=== PATIENT | male | born 1955 | race Caucasian/White ===

== ENCOUNTER → 2019-10-09 16:38 | Outpatient (CLI) | payer BC, SELFPAY ==
[2019-10-09 17:04] LABS: Basophils # 0.1 K/mm3 (0-0.2); Basophils % 0.7 % (0.1-2.0); Eosinophils # 0.1 K/mm3 (0.0-0.4); Eosinophils % 1.2 % (0.1-12.0); Hematocrit 42.9 % (37.0-47.0); Hemoglobin 14.9 g/dL (12.2-16.2); Lymphocytes # 2.2 K/mm3 (0.7-4.5); Lymphocytes % 34.1 % (10-50); Mean Corpuscular HGB Conc 34.8 g/dL (31.8-35.4); Mean Corpuscular Hemoglobin 31.7 pg (27.0-31.2); Mean Platelet Volume 8.4 fl (7.4-10.4); Monocytes # 0.4 K/mm3 (0.1-1.0); Monocytes % 6.8 % (1.7-9.3); Neutrophils # 3.7 K/mm3 (1.8-7.8); Neutrophils % 57.2 % (37.0-80.0); Platelet Count 259 K/mm3 (142-424); Red Blood Count 4.72 M/mm3 (4.20-5.40); Red Cell Distribution Width 12.9 % (11.5-17.5); White Blood Count 6.4 K/mm3 (4.8-10.8)
[2019-10-09 17:34] LABS: Alanine Aminotransferase 25 U/L (12-78); Albumin Level 4.7 g/dl (3.5-5.0); Albumin/Globulin Ratio 1.7 (1.1-1.8); Alkaline Phosphatase 73 U/L (38-126); Anion Gap 11.4 mEq/L (5-15); Aspartate Amino Transferase 38 U/L (14-36); Bilirubin,Total 0.5 mg/dl (0.2-1.3); Blood Urea Nitrogen 13 mg/dl (7-17); Calcium 9.4 mg/dl (8.4-10.2); Carbon Dioxide 29 mmol/L (22.0-30.0); Chloride 101 mmol/L (98-107); Chol/HDL Ratio 2.6 (1-3.5); Cholesterol 108 mg/dl (140-200); Estimated Glomerular Filt Rate 38 ml/min (>60); GFR (African American) 46 ML/MIN (>60); Globulin 2.8 g/dL (1.3-3.2); Glucose 96 mg/dl (74-100); HDL Cholesterol 41 mg/dl (40-60); Potassium 4.4 mmoL/L (3.5-5.1); Sodium 137 mmol/L (136-145); Total Protein,Serum 7.5 g/dl (6.3-8.2); Triglycerides 276 mg/dl (30-150); VLDL Cholesterol 55 mg/dL (0-40)
[2019-10-11 11:12] LABS: PSA, Free 0.59 ng/mL; Prostate Specific Ag 1.9 ng/mL (Not Estab.)
== END ==
PROVIDERS: Visit Provider Family Medicine
DX: I10 Essential (primary) hypertension (principal); Z00.00 Encounter for general adult medical examination without abnormal findings; E78.5 Hyperlipidemia, unspecified
CPT/HCPCS: 80053; 80061; 84153; 84154; 85025

== ENCOUNTER → 2020-02-29 16:56 | Outpatient (CLI) | payer BC, SELFPAY ==
[2020-02-29 18:56] LABS: Chloride 100 mmol/L (98-107); Potassium 4.5 mmoL/L (3.5-5.1); Sodium 141 mmol/L (136-145)
[2020-02-29 18:59] LABS: Anion Gap 17.5 mEq/L (5-15); Blood Urea Nitrogen 15 mg/dl (9-20); Carbon Dioxide 28 mmol/L (22.0-30.0); Estimated Glomerular Filt Rate 51 ml/min (>60); GFR (African American) 62 ML/MIN (>60)
[2020-02-29 19:00] LABS: Calcium 9.5 mg/dl (8.4-10.2); Glucose 91 mg/dl (74-100)
== END ==
PROVIDERS: Visit Provider Family Medicine
DX: M25.461 Effusion, right knee (principal)
CPT/HCPCS: 80048

== ENCOUNTER → 2020-05-02 11:49 | Outpatient (CLI) | payer BC, SELFPAY ==
--- NOTE | 2020-05-02 11:54 | XR_ITS ---
PROCEDURE: XR LUMBAR SPINE 2-3V CLINICAL INDICATION: back pain Low back pain COMPARISON: No exams were available for comparison FINDINGS: There is normal alignment. No acute fracture or dislocation. Anterior osteophytes are present at L2-L3 L4 and L5. Facet arthritic changes are present at L5-S1. Degenerative disc disease L5-S1. IMPRESSION: Degenerative changes Dictated by: Bradford Anderson MD 05/02/2020 15:11 Bradford Anderson MD in [place] 05/02/2020 15:11
--- NOTE | 2020-05-02 11:54 | XR_ITS ---
PROCEDURE: XR KNEE RT 2V CLINICAL INDICATION: erosive oa Pain COMPARISON: No exams were available for comparison FINDINGS: No fracture or dislocation. No lytic or blastic change. There is normal mineralization. There are mild osteoarthritic changes involving all 3 compartments. A lucency is noted at the base the lateral tibial spine and could be due to an avulsion injury or ununited ossification center versus bony spur. Other findings:None. IMPRESSION: Mild osteoarthritic changes with lucency at the base of the lateral tibial spine which could be due to avulsion injury or ununited ossification center versus bony spur. Dictated by: Bradford Anderson MD 05/02/2020 15:06 Bradford Anderson MD in [place] 05/02/2020 15:06
--- NOTE | 2020-05-02 11:54 | XR_ITS ---
PROCEDURE: XR CHEST 2V CLINICAL HISTORY: right lung pain COMPARISON: No exams were available for comparison FINDINGS: The cardiomediastinal silhouette and pulmonary vascularity are within normal limits. The lungs are clear without infiltrates, suspicious nodules, or pleural effusions. No acute bony abnormalities. IMPRESSION: No acute findings. Dictated by: Bradford Anderson MD 05/02/2020 15:10 Bradford Anderson MD in [place] 05/02/2020 15:10
--- NOTE | 2020-05-02 11:54 | XR_ITS ---
PROCEDURE: XR THORACIC SPINE 2V CLINICAL INDICATION: back pain COMPARISON: No exams were available for comparison FINDINGS: Normal alignment. Multilevel endplate osteophytes with mild multilevel degenerative disc disease. The. No fracture or dislocation. No lytic or blastic change. IMPRESSION: Thoracic spondylosis, no acute finding Dictated by: Bradford Anderson MD 05/02/2020 15:09 Bradford Anderson MD in [place] 05/02/2020 15:09
== END ==
PROVIDERS: PCP Family Medicine; Visit Provider Family Medicine
DX: M54.5 Low back pain (principal); R05 Cough; M54.6 Pain in thoracic spine; M25.561 Pain in right knee
CPT/HCPCS: 71046; 72070; 72100; 73560

== ENCOUNTER → 2020-06-03 13:37 | Outpatient (CLI) | payer BC, SELFPAY ==
--- NOTE | 2020-06-03 13:45 | XR_ITS ---
PROCEDURE: XR KNEE RT 4V CLINICAL INDICATION: right knee pain; weightbearing COMPARISON: CR XR KNEE RT 2V from 05/02/2020 FINDINGS: There is [id number] narrowing of the medial compartment of the right knee on the current images. There is widening of the lateral compartment of the right knee on current images causing varus deformity. There are marginal patellar osteophytes. There is a moderate joint space effusion. The there is narrowing of the lateral aspect of the patellofemoral compartment. The IMPRESSION: Abnormal narrowing, and widening and other degenerative findings as above. Dictated by: Zuleyka Camarillo MD 06/03/2020 18:37 Zuleyka Camarillo MD in [place] 06/03/2020 18:37
--- NOTE | 2020-06-03 13:45 | XR_ITS ---
PROCEDURE: XR HIP RT 2-3V W/PELVIS CLINICAL INDICATION: right hip pain COMPARISON: No exams were available for comparison FINDINGS: No fracture or dislocation is evident. No significant degenerative change. No lytic or blastic change. Unremarkable soft tissues. IMPRESSION: No acute findings. Dictated by: Dr. Leonel Grant MD 06/03/2020 17:32 Dr. Leonel Grant MD in [place] 06/03/2020 17:32
== END ==
PROVIDERS: PCP Family Medicine; Visit Provider Orthopaedic Surgery
DX: M25.561 Pain in right knee (principal); M25.551 Pain in right hip
CPT/HCPCS: 73502; 73564

== ENCOUNTER → 2020-07-11 09:59 | Outpatient (POV) | payer BC, SELFPAY ==
[2020-07-11 10:25] VITALS: BP 129/84; PULSE 63; RESP 18; O2SAT 98; BMI 29.0
--- NOTE | 2020-07-11 10:47 | HMH.PMCON ---
Assessment and Plan (1) Myofascial pain syndrome of thoracic spine Status: Chronic Category: Medical Code(s): M79.18 - Myalgia, other site - Assessment and plan all Dx Assessment and Plan for all problems:: We will schedule the patient for right thoracic paraspinous trigger point injections. I will follow-up with him afterwards reassess his symptoms at that time he has been instructed to call the office if he has any issues prior to his next appointment. Dr. Beauchamp has reviewed this note and agrees with this plan of care. This note was dictated using voice recognition software and may contain errors or omissions HPI - Data of Consult Consult date: 07/11/20 Requesting Physician: Jaki Tenorio APRN Primary Care Provider: Jesse Jin MD - Consult Narrative Reason for consult: Back pain History of present illness: Mr. Ramirez is a 65 year old male who presents today for consultation in regards to his thoracic back pain. Patient states he has had this pain for about 3 months. He has no recollection of any trauma or initiating factor. Patient rates his pain a 5 out of 10. Mostly in the mid right back. Patient states that leaning forward and typing at his computer increases pain while rest, reclining and Motrin decreases pain. Patient denies any numbness and tingling. Patient states that when he moves a certain way the pain does seem to increase. On examination patient does have palpable trigger points in the right thoracic paraspinous area. CC: Jaki Tenorio APRN [facility] History I have reviewed the patient's past medical history: Yes Medical History: Reports:: Gastroesophageal Reflux Disease(GERD), Hyperlipidemia, Hypertension Denies:: Cancer, Diabetes Mellitus Type 1, Diabetes Mellitus Type 2, MRSA *Have you ever received a pneumonia vaccine?: No *Have you received a flu vaccine this season?: No Laterality Cases: Right: Carpal Tunnel Release Other Surgeries: Yes: Colonoscopy Amputation: No Fractures: No - *Social History Smoking Status: Never smoker Alcohol Intake: never Substance Use Type: denies use *Occupational Status:: retired Housing: house Household Members: other *Travel in the last 8 weeks: None Family Hx:: Unable to obtain Review of Systems - Review of Systems ROS General: no recent weight change, no fever, no sleep disturbances Respiratory: no cough, no shortness of air, no recurring pulmonary infections Cardiovascular/Peripheral Vascular: No chest pain, No palpitations, no edema, no shortness of breath. Gastrointestinal: no new onset incontinence, normal bowel movements reported Genitourinary: no new onset incontinence Musculoskeletal: Muscle pain Psychiatric: normal mood/ affect Neurological: [denies new onset weakness in extremities], [denies new onset balance issues] Meds Home Medications Medication Instructions Recorded Confirmed Type amlodipine 10 mg-benazepril 20 mg 1 cap PO ONCE #30 cap 10/09/19 06/03/20 Rx capsule ezetimibe 10 mg tablet 10 mg PO DAILY #30 tab 10/09/19 06/03/20 Rx fluoxetine 20 mg capsule 20 mg PO DAILY #30 cap 10/09/19 06/03/20 Rx omeprazole 40 mg capsule,delayed 40 mg PO DAILY #30 cap 10/09/19 06/03/20 Rx release sildenafil 100 mg tablet 100 mg PO ONCE PRN #10 tab 10/09/19 06/03/20 Rx simvastatin 20 mg tablet 20 mg PO DAILY #30 tab 10/09/19 06/03/20 Rx Allergies Allergy/AdvReac Type Severity Reaction Status Date / Time No Known Allergies Allergy Verified 06/03/20 14:47 Objective Vital signs: Pulse Resp BP Pulse Ox 63 18 129/84 98 07/11/20 10:25 07/11/20 10:25 07/11/20 10:25 07/11/20 10:25 Narrative: Skull exam physical Exam General: Alert and oriented x3, no acute distress, pleasant and cooperative, [on room air] Lungs: Resps E/U, Symmetrical chest expansion, Eyes: PERRL Musculoskeletal: Flexion and extension of thoracic spine somewhat guarded secondary to pain, deep tendon reflexe
== END ==
PROVIDERS: PCP Family Medicine; Visit Provider Clinical Nurse Specialist Family Health
DX: M79.18 Myalgia, other site (principal)
CPT/HCPCS: 99202; G0463

== ENCOUNTER 2020-07-15 13:10 | Day surgery (SDC) | payer BC, SELFPAY ==
[2020-07-15 13:14] VITALS: BP 162/86; PULSE 69; RESP 18; TEMP 36.6; O2SAT 98; BMI 29.0
[2020-07-15 13:39] VITALS: BP 132/79; PULSE 79; RESP 18
[2020-07-15 13:40] VITALS: BP 140/79; PULSE 89; RESP 18; O2SAT 98
[2020-07-15 13:46] VITALS: BP 163/88; PULSE 66; RESP 18; O2SAT 98
--- NOTE | 2020-07-15 14:03 | HMH.PMPROC ---
- Procedure Date: 07/15/20 Time: 14:03 Anesthesiologist:: Rodney Beauchamp MD Complications:: None Pre-procedure Diagnosis:: Mid back pain with thoracic paraspinous myofascial pain Post-procedure Diagnosis:: Same Indications for Procedure:: This patient is a pleasant 65-year-old white male who has increasing mid back pain worse when he is leaning forward and typing at his computer. He has trigger points identified on the right thoracic paraspinous area. We will do trigger point injections to the right thoracic paraspinous muscles today for his myofascial pain. Procedure Details:: Trigger point injections x4 to the right thoracic paraspinous muscles Informed consent was obtained risk and benefits of the procedure were explained to the patient. Patient was taken the procedure room. The right mid back was prepped using ChloraPrep. Trigger points were palpated marked. Each of these trigger points were injected with bupivacaine 0.25% 3 mL and Depo-Medrol 10 mg. We used a total of 40 mg Depo-Medrol for 4 trigger points on the right thoracic paraspinous muscles. Plan and Disposition:: We will follow-up with him in 2 weeks. Will reevaluate symptoms at that time.
== END 2020-07-15 13:46 | disposition home or self-care (01) ==
PROVIDERS: PCP Family Medicine; Visit Provider Anesthesiology
DX: M54.6 Pain in thoracic spine (principal); M79.18 Myalgia, other site; E78.5 Hyperlipidemia, unspecified; I10 Essential (primary) hypertension; K21.9 Gastro-esophageal reflux disease without esophagitis; Z87.39 Personal history of other diseases of the musculoskeletal system and connective tissue
CPT/HCPCS: 20552; J1040

== ENCOUNTER → 2020-08-11 11:04 | Outpatient (POV) | payer BC, SELFPAY ==
[2020-08-11 11:51] VITALS: BP 136/74; PULSE 74; RESP 18; O2SAT 98; BMI 28.6
--- NOTE | 2020-08-11 12:46 | HMH.PAINSOAP ---
[facility] Pain Management SOAP Note Subjective:: Patient is a pleasant 65-year-old white male who presents today for follow-up after trigger point injections. Patient did not get much relief with this. However he rates his pain a 0 out of 10 today. Patient will pain in her his right thoracic paraspinous worsening with activity including mowing the lawn and computer work. Patient has relief when pressure is held in this area however it returns when pressure is released. We discussed low-dose muscle relaxers. ROS General: no recent weight change, no fever, no sleep disturbances Respiratory: no cough, no shortness of air, no recurring pulmonary infections Cardiovascular/Peripheral Vascular: No chest pain, No palpitations, no edema, no shortness of breath. Gastrointestinal: no new onset incontinence, normal bowel movements reported Genitourinary: no new onset incontinence Musculoskeletal: Myofascial pain Psychiatric: normal mood/ affect Neurological: [denies new onset weakness in extremities], [denies new onset balance issues] Objective:: Physical Exam General: Alert and oriented x3, no acute distress, pleasant and cooperative, [on room air] Lungs: Resps E/U, Symmetrical chest expansion, Eyes: PERRL Musculoskeletal: Flexion and extension of thoracic spine somewhat guarded secondary to pain, deep tendon reflexes normal, strength in upper and lower extremities [5/5], normal gait noted here Neurological: speech clear, licensed physical therapy assistant equal, no gross sensory deficits Assessment:: Myofascial pain syndrome Plan:: We will give the patient Zanaflex 2 mg up to 3 times daily. We will see him back in 3 weeks reassess his symptoms at that time he has been instructed to call the office if he has any issues prior to his next appointment. Dr. Beauchamp has reviewed this note and agrees with this plan of care. This note was dictated using voice recognition software and may contain errors or omissions [facility] History I have reviewed the patient's past medical history: Yes Medical History: Reports:: Gastroesophageal Reflux Disease(GERD), Hyperlipidemia, Hypertension Denies:: Cancer, Diabetes Mellitus Type 1, Diabetes Mellitus Type 2, MRSA, Seizures *Have you ever received a pneumonia vaccine?: Yes *Have you received a flu vaccine this season?: Yes Other Medical History: Denies: Blood Transfusion Reaction Laterality Cases: Right: Carpal Tunnel Release Other Surgeries: Yes: Colonoscopy Amputation: No Fractures: No - *Social History Smoking Status: Never smoker Alcohol Intake: never Substance Use Type: denies use *Occupational Status:: other Housing: house Household Members: other *Travel in the last 8 weeks: None Family Hx:: Unable to obtain
== END ==
PROVIDERS: PCP Family Medicine; Visit Provider Clinical Nurse Specialist Family Health
DX: M79.18 Myalgia, other site (principal)
CPT/HCPCS: 99212; G0463

== ENCOUNTER → 2020-09-05 10:33 | Outpatient (POV) | payer BC, SELFPAY ==
[2020-09-05 11:00] VITALS: BP 142/81; PULSE 53; RESP 18; O2SAT 96; BMI 28.1
--- NOTE | 2020-09-05 12:30 | HMH.PAINSOAP ---
[facility] Pain Management SOAP Note Subjective:: Patient is a pleasant 65-year-old white male who presents today for follow-up. Patient is still having thoracic back pain radiated 6 out of 10. He has no had been over 6 months. Patient has not gotten relief from medications, therapy, stretching programs. We discussed getting some diagnostic imaging of his thoracic spine he is agreeable. We will move forward with this. ROS General: no recent weight change, no fever, no sleep disturbances Respiratory: no cough, no shortness of air, no recurring pulmonary infections Cardiovascular/Peripheral Vascular: No chest pain, No palpitations, no edema, no shortness of breath. Gastrointestinal: no new onset incontinence, normal bowel movements reported Genitourinary: no new onset incontinence Musculoskeletal: [Thoracic back pain Psychiatric: normal mood/ affect Neurological: [denies new onset weakness in extremities], [denies new onset balance issues] Objective:: Physical Exam General: Alert and oriented x3, no acute distress, pleasant and cooperative, [on room air] Lungs: Resps E/U, Symmetrical chest expansion, Eyes: PERRL Musculoskeletal: Flexion and extension of thoracic spine somewhat guarded secondary to pain, deep tendon reflexes normal, strength in upper and lower extremities [5/5], normal gait noted Neurological: speech clear, wood experimental mechanic equal, no gross sensory deficits Assessment:: Thoracic back pain Plan:: We will schedule a thoracic MRI to help determine pathology. He has been instructed to call the office if he has any issues prior to his next appointment. Dr. Beauchamp has reviewed this note and agrees with this plan of care. This note was dictated using voice recognition software and may contain errors or omissions [facility] History I have reviewed the patient's past medical history: Yes Medical History: Reports:: Gastroesophageal Reflux Disease(GERD), Hyperlipidemia, Hypertension Denies:: Cancer, Diabetes Mellitus Type 1, Diabetes Mellitus Type 2, MRSA, Seizures *Have you ever received a pneumonia vaccine?: No *Have you received a flu vaccine this season?: No Other Medical History: Denies: Blood Transfusion Reaction Laterality Cases: Right: Carpal Tunnel Release Other Surgeries: Yes: Colonoscopy Amputation: No Fractures: No - *Social History Smoking Status: Never smoker Alcohol Intake: never Substance Use Type: denies use *Occupational Status:: employed Housing: house Household Members: other *Travel in the last 8 weeks: None Family Hx:: Unable to obtain
== END ==
PROVIDERS: Visit Provider Clinical Nurse Specialist Family Health
DX: M54.6 Pain in thoracic spine (principal)
CPT/HCPCS: 99212; G0463

== ENCOUNTER → 2020-09-08 16:47 | Outpatient (CLI) | payer BC, SELFPAY ==
--- NOTE | 2020-09-08 16:49 | MR_ITS ---
PROCEDURE: MR THORACIC SPINE WO CON CLINICAL INDICATION: MID BACK PAIN Mid back pain that goes to the rt. Symptoms [id number]. COMPARISON: No exams were available for comparison TECHNIQUE: Routine multiplanar multi echo sequences are performed without gadolinium enhancement. FINDINGS: There is normal alignment. No fracture or dislocation is evident. No bony destructive process. No disc herniation or epidural mass apparent. No significant degenerative changes are evident. IMPRESSION: Negative MRI the thoracic spine Dictated by: Bradford Anderson MD 09/09/2020 10:50 Bradford Anderson MD in [place] 09/09/2020 10:50
== END ==
PROVIDERS: PCP Family Medicine; Visit Provider Clinical Nurse Specialist Family Health
DX: M54.6 Pain in thoracic spine (principal)
CPT/HCPCS: 72146

== ENCOUNTER → 2020-09-15 10:05 | Outpatient (POV) | payer BC, SELFPAY ==
[2020-09-15 10:11] VITALS: BP 139/69; PULSE 69; RESP 18; O2SAT 97; BMI 28.1
--- NOTE | 2020-09-15 10:51 | HMH.PAINSOAP ---
[facility] Pain Management SOAP Note Subjective:: Patient is a 65-year-old white male who presents today for follow-up. The patient is being treated for mid back pain. He rates his pain a 2 out of 10 today, however, the patient is having significant pain in multiple areas today. He reports he has tried trigger point injections to his mid back area where he continues to have pain. He reports the pain to start in the right mid back area around the T3-T4 area. He says the pain presents first thing in the morning as he awakens, and radiates throughout the day to upper and lower back area as well as to the left side. He has tried muscle relaxers as well as anti-inflammatories and injections with no relief. He is also complaining of pain to his right knee. Patient has seen Dr. Krishna in the past for which he says that he was told it is due to her cartilage issue. Patient says that he is now having the same type of pain to his left knee. He has noticed some edema to his right knee on occasion. He does take muscle relaxers which did give him relief short-term, however, his pain is back. He is inquiring about massage therapy as well as chiropractic therapy. Review of Systems General: No recent weight changes, no fever, no sleep disturbances Respiratory: No cough, no shortness of air, no recurring pulmonary infections Cardiovascular/peripheral vascular: No chest pain, no palpitations, no edema, no shortness of breath Gastrointestinal: No new onset incontinence, normal bowel movements reported Genitourinary: No new onset incontinence Musculoskeletal: Mid back pain, bilateral knee pain Psychiatric: Normal mood/affect Neurological: [Denies weakness in extremities], [denies balance issues] Objective:: Physical exam General: Alert and oriented x3, no acute distress, pleasant and cooperative, [on room air] Lungs: Respirations even and unlabored, symmetrical chest expansion Eyes: PERRL Musculoskeletal: Flexion and extension of thoracic spine bilateral lower extremities somewhat guarded secondary to pain, deep tendon reflexes normal, strength in upper and lower extremities [4/5], [abnormal gait noted] Neurological: Speech clear, data collection specialist equal, no gross sensory deficit Assessment:: Mid back pain, myofascial pain mid back, bilateral knee pain Plan:: Patient I discussed trying Skelaxin. His muscle relaxer he is currently taking is not working for his pain. We also discussed a compounding cream, however, he is not interested at this time. We will order him Skelaxin and plan to see him back in a month to reevaluate his symptoms. He will inquire with the massage therapist and with a chiropractor to see if this helps with his myofascial pain to his mid back. The injections did not work for him. Risks and benefits of the medication have been explained in detail to the patient. The patient has been advised to consult with his/her primary care provider and pharmacist regarding drug-drug interaction of medications currently prescribed. Patient has been instructed to contact the clinic with any concerns before the next appointment. Dr. Beauchamp has reviewed this note and agrees with this plan of care. This note was dictated using voice recognition software and make contain errors or omissions. [facility] History I have reviewed the patient's past medical history: Yes Medical History: Reports:: Gastroesophageal Reflux Disease(GERD), Hyperlipidemia, Hypertension Denies:: Cancer, Diabetes Mellitus Type 1, Diabetes Mellitus Type 2, MRSA, Seizures *Have you ever received a pneumonia vaccine?: No *Have you received a flu vaccine this season?: No Other Medical History: Denies: Blood Transfusion Reaction Laterality Cases: Right: Carpal Tunnel Release Other Surgeries: Yes: Colonoscopy Amputation: No Fractures: No - *Social History Smoking Status: Never smoker Alcohol Intake: never Substance Use Type: denies use *Occupational Status:: employed Housing: house House
== END ==
PROVIDERS: PCP Family Medicine; Visit Provider Clinical Nurse Specialist Family Health
DX: M54.6 Pain in thoracic spine (principal); M25.561 Pain in right knee; M25.562 Pain in left knee; M79.18 Myalgia, other site
CPT/HCPCS: 99212; G0463

== ENCOUNTER → 2020-10-17 10:06 | Outpatient (POV) | payer BC, SELFPAY ==
[2020-10-17 10:17] VITALS: BP 133/75; PULSE 66; RESP 18; O2SAT 95; BMI 28.1
--- NOTE | 2020-10-17 10:28 | HMH.PAINSOAP ---
[facility] Pain Management SOAP Note Subjective:: Patient is a 65-year-old white male who presents today for follow-up. He has been treated in the clinic for myofascial pain and bilateral knee pain. Patient was previously started on Skelaxin for his myofascial pain. He has tried trigger point injections which she did not get much relief. He is seeing Dr. Krishna for his bilateral knee pain. He says that he had hoped to get synthetic injections in bilateral knees, but was denied by his insurance. He is planning to see Dr. Krishna today for discussion of further plan of care for his knees. He does say he plans to see a chiropractor in the following week for his mid and low back pain. Skelaxin has caused him to be very drowsy. He is not taking any anti-inflammatory. He did take ibuprofen for a short time. We did discuss trying diclofenac. He would like to try diclofenac to see if this helps with his knee pain and mid and low back pain. His pain is a 1 out of 10 today. Review of Systems General: No recent weight changes, no fever, no sleep disturbances Respiratory: No cough, no shortness of air, no recurring pulmonary infections Cardiovascular/peripheral vascular: No chest pain, no palpitations, no edema, no shortness of breath Gastrointestinal: No new onset incontinence, normal bowel movements reported Genitourinary: No new onset incontinence Musculoskeletal: Mid and low back pain, bilateral knee pain Psychiatric: Normal mood/affect Neurological: [Denies weakness in extremities], [denies balance issues] Objective:: Physical exam General: Alert and oriented x3, no acute distress, pleasant and cooperative, [on room air] Lungs: Respirations even and unlabored, symmetrical chest expansion Eyes: PERRL Musculoskeletal: Flexion and extension of thoracic and lumbar spine somewhat guarded secondary to pain, deep tendon reflexes normal, strength in upper and lower extremities [5/5], [normal gait noted Neurological: Speech clear, store protection specialist equal, no gross sensory deficit Assessment:: Myofascial pain mid back, low back, bilateral knee pain Plan:: Patient plans to seek chiropractic therapy in 1 week. We will plan to follow-up with him after that visit to discuss a further plan of care. He may do physical therapy if chiropractic therapy does not give him relief. We will order him diclofenac 75 mg 1 tablet p.o. twice daily. Risks and benefits of the medication have been explained in detail to the patient. The patient has been advised to consult with his/her primary care provider and pharmacist regarding drug-drug interaction of medications currently prescribed. Patient has been instructed to contact the clinic with any concerns before the next appointment. Dr. Beauchamp has reviewed this note and agrees with this plan of care. This note was dictated using voice recognition software and make contain errors or omissions. [facility] History I have reviewed the patient's past medical history: Yes Medical History: Reports:: Gastroesophageal Reflux Disease(GERD), Hyperlipidemia, Hypertension Denies:: Cancer, Diabetes Mellitus Type 1, Diabetes Mellitus Type 2, MRSA, Seizures *Have you ever received a pneumonia vaccine?: No *Have you received a flu vaccine this season?: Yes Other Medical History: Denies: Blood Transfusion Reaction Laterality Cases: Right: Carpal Tunnel Release Other Surgeries: Yes: Colonoscopy Amputation: No Fractures: No - *Social History Smoking Status: Never smoker Alcohol Intake: never Substance Use Type: denies use *Occupational Status:: employed Housing: house Household Members: other *Travel in the last 8 weeks: None Family Hx:: Unable to obtain
== END ==
PROVIDERS: Visit Provider Clinical Nurse Specialist Family Health
DX: M79.18 Myalgia, other site (principal); M54.5 Low back pain; M25.561 Pain in right knee; M25.562 Pain in left knee
CPT/HCPCS: 99212; G0463

== ENCOUNTER → 2020-12-13 14:25 | Outpatient (CLI) | payer BC, SELFPAY ==
[2020-12-13 14:34] LABS: Basophils # 0.1 K/mm3 (0-0.2); Basophils % 0.8 % (0.1-2.0); Chloride 103 mmol/L (98-107); Eosinophils # 0.1 K/mm3 (0.0-0.4); Eosinophils % 1.5 % (0.1-12.0); Hematocrit 43.9 % (42.0-52.0); Hemoglobin 15.1 g/dL (14.1-18.0); Lymphocytes # 1.6 K/mm3 (0.7-4.5); Lymphocytes % 25.9 % (10-50); Mean Corpuscular HGB Conc 34.5 g/dL (31.8-35.4); Mean Platelet Volume 9.2 fl (7.4-10.4); Monocytes # 0.5 K/mm3 (0.1-1.0); Monocytes % 7.4 % (1.7-9.3); Neutrophils % 64.4 % (37.0-80.0); Platelet Count 284 K/mm3 (142-424); Red Blood Count 4.72 M/mm3 (4.60-6.20); Red Cell Distribution Width 12.9 % (11.5-17.5); Sodium 142 mmol/L (136-145); White Blood Count 6.2 K/mm3 (4.8-10.8)
[2020-12-13 14:35] LABS: Potassium 4.6 mmoL/L (3.5-5.1)
[2020-12-13 14:37] LABS: Alanine Aminotransferase 30 U/L (12-78); Alkaline Phosphatase 72 U/L (38-126); Aspartate Amino Transferase 34 U/L (17-59); Bilirubin,Total 0.5 mg/dl (0.2-1.3); Blood Urea Nitrogen 13 mg/dl (9-20); Carbon Dioxide 27 mmol/L (22.0-30.0); Estimated Glomerular Filt Rate 61 ml/min (>60); GFR (African American) 74 ML/MIN (>60)
[2020-12-13 14:38] LABS: Albumin Level 4.3 g/dl (3.5-5.0); Albumin/Globulin Ratio 1.6 (1.1-1.8); Calcium 9.2 mg/dl (8.4-10.2); Cholesterol 116 mg/dl (140-200); Globulin 2.7 g/dL (1.3-3.2); Glucose 108 mg/dl (74-100); HDL Cholesterol 39 mg/dl (40-60); Triglycerides 148 mg/dl (30-150); VLDL Cholesterol 30 mg/dL (0-40)
[2020-12-13 14:49] LABS: Direct LDL Cholesterol 50.94 mg/dL (100-129)
[2020-12-13 15:29] LABS: Prostate Specific Ag Screen 2.1 ng/ml (0.0-4.0)
[2020-12-13 20:12] LABS: Anion Gap 16.6 mEq/L (5-15)
== END ==
PROVIDERS: Visit Provider Family Medicine
DX: I10 Essential (primary) hypertension (principal); E78.5 Hyperlipidemia, unspecified; Z12.5 Encounter for screening for malignant neoplasm of prostate
CPT/HCPCS: 80053; 80061; 85025; G0103